=== PATIENT | female | born 1955 | race African-American/Black ===

== ENCOUNTER 2023-12-08 08:06 | Day surgery (SDC) | payer OTHER ==
[2023-12-07 09:10] LABS: Absolute Eosinophils 0.2 K/uL (0-0.5); Absolute Lymphocytes (CBC) 2.6 K/uL (0.7-4.9); Absolute Monocytes 0.9 K/uL (0.1-1.3); Absolute Neutrophil 4.3 K/uL (1.8-8.0); Basophils % 0.6 % (0-1.3); Hematocrit 36.6 % (36.0-45.0); Hemoglobin 11.9 g/dL (12.0-15.0); Lymphocytes % 32.7 % (15.3-44.8); MCH 29.9 pg (27.0-35.0); MCHC 32.6 g/dL (32.0-36.0); MCV 91.8 fL (80-100); Monocytes % 10.9 % (3.3-12.3); Neutrophils % 53.8 % (41.7-73.7); Nucleated Red Blood Cells % 0.2 % (0-0); Platelets 242 thou/uL (152-406); RBC Red Blood Cell Count 3.98 M/uL (3.86-4.86); Red Cell Distribution Width 15.2 % (12.1-15.2)
[2023-12-07 09:16] LABS: Anion Gap 6.1 mEq/L (5.0-15.0); Potassium 4.1 mEq/L (3.5-5.1)
[2023-12-08] MEDS: Ringers Lactate 1,000 ML IV ONE (08:40)
[2023-12-08 09:22] VITALS: O2SAT 100
[2023-12-08] MEDS ORDERED: LIDOCAINE 1% MPF 30 ML VIAL ONE (10:25)
[2023-12-08] MEDS ORDERED: propofoL 200 MG/20 ML VIAL IV ONE ×2 (10:25)
[2023-12-08 14:27] VITALS: BP 122/76; TEMP 97.3
== END 2023-12-08 11:40 | disposition home or self-care (01) ==
LOC: OR 08:06
PROVIDERS: ATTEND Surgery
PROC: 0DBL8ZX Excision of Transverse Colon, Via Natural or Artificial Opening Endoscopic, Diagnostic (ICD-10-PCS; principal; 2023-12-08 09:45)
DX: Z12.11 Encounter for screening for malignant neoplasm of colon (principal); K63.5 Polyp of colon; D12.3 Benign neoplasm of transverse colon; K64.8 Other hemorrhoids; K64.4 Residual hemorrhoidal skin tags
CPT/HCPCS: 93005; 85025; 80048; 36415; 88304; 45385; J2704 ×2; J2001; J7120; 88305

== ENCOUNTER 2025-05-23 08:09 | Day surgery (SDC) | payer OTHER ==
[2025-05-20 15:27] LABS: Absolute Lymphocytes (CBC) 3.1 K/uL (0.7-4.9); Hematocrit 37.1 % (36.0-45.0); Hemoglobin 12.0 g/dL (12.0-15.0); MCH 29.6 pg (27.0-35.0); MCHC 32.3 g/dL (32.0-36.0); MCV 91.8 fL (80-100); MPV 8.9 fL (7.6-11.3); Nucleated RBC Absolute Count 0.0 (0-0); Nucleated Red Blood Cells % 0.0 % (0-0); RBC Red Blood Cell Count 4.04 M/uL (3.86-4.86); White Blood Count 8.00 thou/uL (4.3-10.9)
[2025-05-20 15:57] LABS: Anion Gap 9.6 mEq/L (5.0-15.0); Glucose Level 145.0 mg/dL (74-106); Potassium 4.6 mEq/L (3.5-5.1)
[2025-05-20 15:58] LABS: BUN Blood Urea Nitrogen 12.0 mg/dL (7-18)
[2025-05-23] MEDS ORDERED: Ringers Lactate 1,000 ML IV ONE (08:22)
[2025-05-23 09:03] VITALS: O2SAT 100
[2025-05-23] MEDS ORDERED: LIDOCAINE 1% MPF 5 ML VIAL ONE (10:14)
[2025-05-23 13:45] VITALS: TEMP 97.2
[2025-05-23 13:50] VITALS: BP 140/81
== END 2025-05-23 12:00 | disposition home or self-care (01) ==
LOC: OR 08:09
PROVIDERS: ATTEND Surgery
PROC: 0DBM8ZX Excision of Descending Colon, Via Natural or Artificial Opening Endoscopic, Diagnostic (ICD-10-PCS; principal; 2025-05-23 10:45)
DX: Z12.11 Encounter for screening for malignant neoplasm of colon (principal); Z86.0100 Personal history of colon polyps, unspecified; K52.9 Noninfective gastroenteritis and colitis, unspecified; K64.8 Other hemorrhoids; K63.5 Polyp of colon
CPT/HCPCS: 93005; 85025; 80048; 36415; 88305; 45380; J2704 ×2; J2003; J7120